=== PATIENT | male | born 1980 | race Caucasian/White ===

== ENCOUNTER 2023-10-25 06:16 | Emergency (ER) | payer MEDICAID, SELFPAY ==
--- NOTE | ~2023-10-25 | CT_ITS ---
Non-contrast CT scan of the Abdomen and Pelvis Clinical indication: Flank pain Technique: 2.5 mm axial scans were obtained through the abdomen and pelvis without intravenous or or al contrast. Dose reduction technique was used on this scan by utilizing automated exposure control a nd iterative reconstruction technique. The dose-length product (DLP) was 1050.47 mGy-cm. Findings: Images through the lung bases reveal no abnormalities. 3-4 mm proximal right ureteral stent present with mild right hydronephrosis. No left renal or left ur eteral stone. No left hydronephrosis. The liver, spleen, pancreas, and adrenals appear normal. Calcified gallstones are present. There is n o aortic aneurysm. There is no evidence of bowel obstruction. Images through the pelvis were performed. There is no evidence of ascites or lymphadenopathy. Urinary bladder unremarkable. No pelvic mass seen. Impression: 3-4 mm proximal right ureteral stone, with mild right hydronephrosis. Reviewed, dictated and finalized at [facility]. Impression: 3-4 mm proximal right ureteral stone, with mild right hydronephrosis.
[2023-10-25 06:27] VITALS: BP 141/81; PULSE 83; RESP 18; TEMP 36.5; O2SAT 100
[2023-10-25 06:40] LABS: Basophils Absolute Auto 0.1 K/mm3 (0.0-0.1); Basophils Percent Auto 0.8 % (0.2-1.2); Eosinophils Absolute Auto 0.5 K/mm3 (0-0.3); Eosinophils Percent Auto 5.3 % (0-4.4); Hematocrit 48.4 % (42.0-52.0); Immature Granulocyte Absolute 0.02 K/mm3 (0.00-0.031); Immature Granulocyte Percent A 0.2 % (0-0.5); Lymphocytes Absolute Auto 2.56 K/mm3 (0.9-3.2); Lymphocytes Percent Auto 29.6 % (18.3-44.2); Mean Corpuscular HGB Conc 33.1 g/dl (32-36); Mean Corpuscular Hemoglobin 30.5 pg (26-34); Mean Corpuscular Volume 92.2 fl (80-100); Mean Platelet Volume 11.2 fl (7.4-10.4); Monocytes Absolute Auto 0.6 K/mm3 (0.1-0.6); Monocytes Percent Auto 7.4 % (2.6-8.5); Neutrophils Absolute Auto 4.9 K/mm3 (1.3-6.7); Neutrophils Percent Auto 56.7 % (45.5-73.1); Platelet Count Result 262 k/mm3 (150-375); Red Blood Count 5.25 M/mm3 (4.6-6.20); Red Cell Distribution Width 13.9 % (11.5-14.5); White Blood Count 8.7 K/mm3 (4.5-10.0)
[2023-10-25] MEDS: MORPHINE SULFATE (*CRX) 4 MG/ML INJ IV PUSH (06:51)
[2023-10-25] MEDS: SODIUM CHLORIDE 0.9% IV 1,000 ML 999 ML IV CONT (06:51)
[2023-10-25] MEDS: ONDANSETRON INJ 4 MG/2 ML VIAL IV PUSH (06:51)
[2023-10-25 06:54] LABS: Alanine Aminotransferase 50 U/L (6-50); Albumin Level 4.2 g/dL (3.5-5.1); Alkaline Phosphatase 62 U/L (38-126); Anion Gap 6 mmol/L (8-16); Aspartate Amino Transferase 44 U/L (17-59); Bilirubin,Total 0.6 mg/dL (0.2-1.3); Blood Urea Nitrogen 14 mg/dL (9-20); Calcium 9.1 mg/dL (8.4-10.2); Carbon Dioxide 29 mmol/L (22-30); Chloride 104 mmol/L (98-107); Estimated CRCL calculation 91 ml/min; Estimated Glomerular Filt Rate > 60; Glucose 171 mg/dL (65-110); Lipase 117 U/L (23-300); Sodium 139 mmol/L (137-145)
[2023-10-25 07:00] LABS: Potassium 3.7 mmol/L (3.4-5.0)
--- NOTE | 2023-10-25 07:56 | ED.ABDPAIN ---
HPI - Abdominal Pain General Chief Complaint: Abdominal Pain Stated Complaint: right flank pain Time Seen by Provider: 10/25/23 07:02 History of Present Illness HPI narrative: 43-year-old male presenting to the emergency department for evaluation of right flank pain. Patient states he had some sharp pain that will come up during the night and after he urinated the pain significantly worsened. Patient denies any prior history of kidney stones. Related Data Allergies Allergy/AdvReac Type Severity Reaction Status Date / Time acetaminophen Allergy Hives Verified 10/25/23 06:18 [From Tylenol-Codeine #3] codeine Allergy Hives Verified 10/25/23 06:18 [From Tylenol-Codeine #3] fluoxetine [From Prozac] Allergy Unknown Verified 10/25/23 06:18 Review of Systems Review of Systems: All systems reviewed & are unremarkable except as noted in HPI and below Exam Narrative: APPEARANCE: Well appearing, no pain, no distress, well-nourished. HEAD: normocephalic, atraumatic. EYES: PERRLA/EOMI, conjunctivae clear. NOSE: Normal no drainage EARS:TMS clear with good light reflex. THROAT: Pharynx clear, no exudate. NECK: Supple. No adenopathy, no masses. RESPIRATORY: Airway patent, respirations nonlabored. Clear to auscultation bilaterally, no rales, rhonchi, wheezing. CARDIOVASCULAR: Regular rate and rhythm without murmurs rubs or gallops. ABDOMINAL: Right CVA tenderness to palpation MUSCULOSKELETAL: Moves all extremities. Strength/ROM intact, No edema, No calf tenderness. NEURO: Alert. Cranial nerves II through XII intact. Good gait. Good coordination SKIN: Warm, dry. Normal Color Course Course Emergency Course: Patient's pain was improved and patient was discharged to home. Patient did not make a urine sample. Vital Signs Vital signs: Vital Signs Temperature 97.7 F 10/25/23 06:27 Pulse Rate 83 10/25/23 06:27 Respiratory Rate 18 10/25/23 06:27 Blood Pressure 141/81 H 10/25/23 06:27 Pulse Oximetry 100 10/25/23 06:27 Oxygen Delivery Room Air 10/25/23 06:27 Temperature 97.7 F 10/25/23 06:27 Pulse Rate 84 10/25/23 09:51 Respiratory Rate 16 10/25/23 09:51 Blood Pressure 142/86 H 10/25/23 09:51 Pulse Oximetry 98 10/25/23 09:51 Oxygen Delivery Room Air 10/25/23 06:27 MDM - Abdominal Pain MDM Narrative Medical decision making narrative: 43-year-old male present to the ED for evaluation for right flank pain. CT scan does show a right-sided renal calculi. Patient is afebrile with no leukocytosis and a stable hemoglobin of 16. Patient has normal kidney function. Differential Diagnosis Differential diagnosis: Likely abdominal pain, acute appendicitis, calculus of kidney and constipation Lab Data Attestation: I reviewed the patient's lab results. 10/25/23 06:35 10/25/23 06:34 Labs: Lab Results 10/25/23 10/25/23 Range/Units 06:34 06:35 WBC 8.7 (4.5-10.0) K/mm3 RBC 5.25 (4.6-6.20) M/mm3 Hgb 16.0 (14.0-18.0) g/dL Hct 48.4 (42.0-52.0) % MCV 92.2 (80-100) fl MCH 30.5 (26-34) pg MCHC 33.1 (32-36) g/dl RDW 13.9 (11.5-14.5) % Plt Count 262 (150-375) k/mm3 MPV 11.2 H (7.4-10.4) fl Immature Gran % (Auto) 0.2 (0-0.5) % Neut % (Auto) 56.7 (45.5-73.1) % Lymph % (Auto) 29.6 (18.3-44.2) % [place] % (Auto) 7.4 (2.6-8.5) % Eos % (Auto) 5.3 H (0-4.4) % Baso % (Auto) 0.8 (0.2-1.2) % Lymph # (Auto) 2.56 (0.9-3.2) K/mm3 [place] # (Auto) 0.6 (0.1-0.6) K/mm3 Eos # (Auto) 0.5 H (0-0.3) K/mm3 Baso # (Auto) 0.1 (0.0-0.1) K/mm3 Abs Immat Gran (auto) 0.02 (0.00-0.031) K/mm3 Absolute Neuts (auto) 4.9 (1.3-6.7) K/mm3 Absolute Nucleated RBC 0.000 (0.0-0.012) K/mm3 Nucleated RBC % 0.0 (0.0-0.2) % Sodium 139 (137-145) mmol/L Potassium 3.7 (3.4-5.0) mmol/L Chloride 104 (98-107) mmol/L Carbon Dioxide 29 (22-30) mmol/L Anion Gap 6 L (8-16) mmol/L BUN 14 (9-20)
[2023-10-25] MEDS: KETOROLAC 15 MG/ML VIAL (*BKC) IV PUSH (08:05)
[2023-10-25] MEDS: TAMSULOSIN HCL 0.4 MG CAPSULE PO (08:05)
--- NOTE | 2023-10-25 09:12 | PC.NURSE ---
pt has been asked many times for urine. pt unwilling to give urine specimen. that's not going to happen
[2023-10-25 09:51] VITALS: BP 142/86; PULSE 84; RESP 16; O2SAT 98
== END 2023-10-25 09:52 | disposition home or self-care (01) ==
PROVIDERS: Emergency Medicine; Emergency Provider Emergency Medicine
DX: N13.2 Hydronephrosis with renal and ureteral calculous obstruction (principal)
CPT/HCPCS: 36415; 74176; 80053; 83690; 85025; 96361; 96374; 96375; 99284; A9270; J1885; J2270; J2405; J7030

== ENCOUNTER 2023-11-06 13:32 | Emergency (ER) | payer MEDICAID, SELFPAY ==
--- NOTE | ~2023-11-06 | CT_ITS ---
EXAMINATION: CT abdomen pelvis wo con DATE: 11/06/2023 14:42 INDICATION: Right flank pain. Kidney stone. TECHNIQUE: Computed tomography (CT) of the abdomen and pelvis was performed without intravenous contr ast. Automated exposure control and iterative reconstruction technique were employed. The dose-length product was 1410.85 mGy-cm. COMPARISON: CT abdomen and pelvis 10/25/2023 FINDINGS: The visualized portions of the lung bases demonstrate mild atelectasis. No pleural effusion . The heart size is normal. No pericardial effusion. There is diffuse hepatic steatosis. There are ga llstones in the gallbladder, which is contracted. The spleen, pancreas, adrenal glands, and left kidn ey are normal. There is mild right hydronephrosis and hydroureter. There is a 3 mm stone in distal ri ght ureter. There are no dilated loops of bowel. The appendix is not visualized. There are no patholo gically enlarged lymph nodes. There is no free intraperitoneal fluid. There is mild thoracic spondylo sis and moderate lumbar spondylosis. IMPRESSION: 1. 3 mm stone in distal right ureter with mild right hydronephrosis and hydroureter. Reviewed, dictated and finalized at location E. IMPRESSION: 1. 3 mm stone in distal right ureter with mild right hydronephrosis and hydrour eter.
[2023-11-06 13:46] VITALS: BP 147/95; PULSE 89; RESP 18; TEMP 36.6; O2SAT 100
--- NOTE | 2023-11-06 13:50 | ED.ABDPAIN ---
HPI - Abdominal Pain General Chief Complaint: Urogenital-Male Stated Complaint: kidney stone? Time Seen by Provider: 11/06/23 13:38 Source: patient Mode of arrival: ambulatory Limitations: no limitations History of Present Illness HPI narrative: This is a 43-year-old male that presents to the emergency department for right-sided abdominal and flank pain. He was seen here couple of days prior and Diagnosed with a kidney stone. Reports worsening pain today which prompted him to be seen again. He has not taken anything for pain. Denies fevers, vomiting, dysuria, hematuria. Related Data Allergies Allergy/AdvReac Type Severity Reaction Status Date / Time acetaminophen Allergy Hives Verified 11/06/23 13:32 [From Tylenol-Codeine #3] codeine Allergy Hives Verified 11/06/23 13:32 [From Tylenol-Codeine #3] fluoxetine [From Prozac] Allergy Unknown Verified 11/06/23 13:32 Review of Systems Review of Systems: CONSTITUTIONAL: Denies fever GASTROINTESTINAL: Reports abdominal pain. Denies nausea, vomiting GENITOURINARY: Denies dysuria or hematuria. All systems reviewed & are unremarkable except as noted in HPI and below PMFSH Past Medical History Medical History (Updated 11/06/23 @ 16:05 by Sera Enriquez PA-C) No active medical problems Social History Social History (Updated 11/06/23 @ 13:51 by Sera Enriquez PA-C) Substance use: never Exam Narrative: GENERAL: Well-appearing, well-nourished, and in mild acute distress due to pain HEAD: Normocephalic, atraumatic. EYES: EOMI. CHEST: Clear to auscultation. No respiratory distress. No wheezes rales or rhonchi HEART: Regular rate and rhythm. No murmur heard. Normal peripheral pulses. ABDOMEN: Soft, nontender, nondistended, normal active bowel sounds. No CVA tenderness EXTREMITIES: Normal range of motion. No edema. SKIN: Warm, dry, no rash. NEURO: No focal deficits. Alert and oriented x3. PSYCH: Normal mood and affect Course Course Emergency Course: Patient updated on his workup. His pain is much improved. Reports he cannot provide a urine sample at this time. Does not wish to stay for any further evaluation or management Vital Signs Vital signs: Vital Signs Temperature 97.9 F 11/06/23 13:46 Pulse Rate 89 11/06/23 13:46 Respiratory Rate 18 11/06/23 13:46 Blood Pressure 147/95 H 11/06/23 13:46 Pulse Oximetry 100 11/06/23 13:46 Oxygen Delivery Room Air 11/06/23 13:46 Temperature 97.9 F 11/06/23 13:46 Pulse Rate 89 11/06/23 13:46 Respiratory Rate 18 11/06/23 13:46 Blood Pressure 147/95 H 11/06/23 13:46 Pulse Oximetry 100 11/06/23 13:46 Oxygen Delivery Room Air 11/06/23 13:46 MDM - Abdominal Pain MDM Narrative Medical decision making narrative: Patient presents to the emergency department for flank pain radiating into the abdomen. He is afebrile and nontoxic appearing. His vitals are stable. CBC without leukocytosis. Kidney function is normal. CT abdomen and pelvis shows 3 mm distal ureteral stone. Patient updated on his workup. His pain is much improved. Reports he cannot provide a urine sample at this time. Does not wish to stay for any further evaluation or management. He was instructed to have follow-up with Urology. He was given warnings to return to the ER Differential Diagnosis Differential diagnosis: Likely calculus of kidney and other (UTI) Lab Data Attestation: I reviewed the patient's lab results. 11/06/23 14:06 11/06/23 14:06 Labs: Lab Results 11/06/23 Range/Units 14:06 WBC 9.5 (4.5-10.0) K/mm3 RBC 5.26 (4.6-6.20) M/mm3 Hgb 15.8 (14.0-18.0) g/dL Hct 46.7 (42.0-52.0) % MCV 88.8 (80-100) fl MCH 30.0 (26-34) pg MCHC 33.8 (32-36) g/dl RDW 13.9 (11.5-14.5) % Plt Count 281 (150-375) k/mm3 MPV 11.8 H (7.4-10.4) fl Immature Gran % (Auto) 0.2 (0-0.5) % Neut % (Auto) 57.8 (45.5-73.1) % Lymph % (Auto) 2
[2023-11-06] MEDS: SODIUM CHLORIDE 0.9% IV 1,000 ML 999 ML IV CONT (14:03)
[2023-11-06] MEDS: ONDANSETRON INJ 4 MG/2 ML VIAL IV PUSH (14:04)
[2023-11-06] MEDS: MORPHINE SULFATE (*CRX) 4 MG/ML INJ IV PUSH (14:04)
[2023-11-06 14:12] LABS: Basophils Absolute Auto 0.1 K/mm3 (0.0-0.1); Basophils Percent Auto 0.8 % (0.2-1.2); Eosinophils Absolute Auto 0.5 K/mm3 (0-0.3); Eosinophils Percent Auto 5.1 % (0-4.4); Hematocrit 46.7 % (42.0-52.0); Hemoglobin 15.8 g/dL (14.0-18.0); Immature Granulocyte Absolute 0.02 K/mm3 (0.00-0.031); Immature Granulocyte Percent A 0.2 % (0-0.5); Lymphocytes Absolute Auto 2.49 K/mm3 (0.9-3.2); Lymphocytes Percent Auto 26.2 % (18.3-44.2); Mean Corpuscular HGB Conc 33.8 g/dl (32-36); Mean Corpuscular Volume 88.8 fl (80-100); Mean Platelet Volume 11.8 fl (7.4-10.4); Monocytes Absolute Auto 0.9 K/mm3 (0.1-0.6); Monocytes Percent Auto 9.9 % (2.6-8.5); Neutrophils Absolute Auto 5.5 K/mm3 (1.3-6.7); Neutrophils Percent Auto 57.8 % (45.5-73.1); Platelet Count Result 281 k/mm3 (150-375); Red Blood Count 5.26 M/mm3 (4.6-6.20); Red Cell Distribution Width 13.9 % (11.5-14.5); White Blood Count 9.5 K/mm3 (4.5-10.0)
[2023-11-06 14:30] VITALS: BP 138/68; PULSE 86; RESP 16; TEMP 37; O2SAT 100
[2023-11-06 14:41] LABS: Alanine Aminotransferase 49 U/L (6-50); Albumin Level 4.5 g/dL (3.5-5.1); Alkaline Phosphatase 75 U/L (38-126); Anion Gap 9 mmol/L (4-12); Aspartate Amino Transferase 34 U/L (17-59); Bilirubin,Total 0.8 mg/dL (0.2-1.3); Blood Urea Nitrogen 17 mg/dL (9-20); Calcium 10.5 mg/dL (8.4-10.2); Carbon Dioxide 23 mmol/L (22-30); Chloride 104 mmol/L (98-107); Estimated Glomerular Filt Rate > 60; Glucose 87 mg/dL (65-110); Lipase 57 U/L (23-300); Sodium 136 mmol/L (137-145)
[2023-11-06 15:00] VITALS: BP 132/78; PULSE 80; RESP 16; TEMP 36.6; O2SAT 98
[2023-11-06 16:00] VITALS: BP 138/76; PULSE 80; RESP 16; TEMP 36.6; O2SAT 98
== END 2023-11-06 16:24 | disposition home or self-care (01) ==
PROVIDERS: Emergency Provider Physician Assistant
DX: N20.0 Calculus of kidney (principal)
CPT/HCPCS: 36415; 74176; 80053; 83690; 85025; 96361; 96374; 96375; 99284; J2270; J2405; J7030

== ENCOUNTER 2023-11-15 07:23 | Emergency (ER) | payer MEDICAID, SELFPAY ==
--- NOTE | ~2023-11-15 | XR_ITS ---
EXAMINATION: XR chest 2V DATE: 11/15/2023 07:54 INDICATION: Left-sided chest pain TECHNIQUE: PA and lateral views of the chest were obtained. COMPARISON: None FINDINGS: The lungs are clear with no focal airspace opacities, pulmonary edema, pleural effusion or pneumothor ax. The cardiomediastinal silhouette is normal. Old healed right clavicle fracture with plate and scr ew fixation. IMPRESSION: 1. No acute cardiopulmonary disease. Reviewed, dictated and finalized at location B.
[2023-11-15 07:30] VITALS: BP 162/100; PULSE 88; RESP 26; TEMP 36.6; O2SAT 100
--- NOTE | 2023-11-15 07:32 | ECG_ITS ---
Measurements Intervals [place] Rate: 83 P: 56 MN: 162 QRS: 9 QRSD: 113 T: 36 QT: 380 Avg RR 717 QTc: 420 QTcB 448 QTcF 424 Interpretive Statements SINUS RHYTHM MODERATE INTRAVENTRICULAR CONDUCTION DELAY [110+ ms QRS DURATION] BORDERLINE ECG SEE SCANNED COPY FOR SIGNATURE MTDD
--- NOTE | 2023-11-15 07:32 | ECG_ITS ---
Measurements Intervals [place] Rate: 83 P: 56 NV: 162 QRS: 9 QRSD: 113 T: 36 QT: 380 Avg RR 717 QTc: 420 QTcB 448 QTcF 424 SINUS RHYTHM MODERATE INTRAVENTRICULAR CONDUCTION DELAY (110+ ms QRS DURATION) BORDERLINE ECG MTDD
[2023-11-15 08:13] LABS: Basophils Absolute Auto 0.1 K/mm3 (0.0-0.1); Eosinophils Absolute Auto 0.2 K/mm3 (0-0.3); Eosinophils Percent Auto 4.3 % (0-4.4); Hematocrit 44.7 % (42.0-52.0); Hemoglobin 14.9 g/dL (14.0-18.0); Immature Granulocyte Absolute 0.01 K/mm3 (0.00-0.031); Immature Granulocyte Percent A 0.2 % (0-0.5); Lymphocytes Absolute Auto 0.84 K/mm3 (0.9-3.2); Lymphocytes Percent Auto 16.3 % (18.3-44.2); Mean Corpuscular HGB Conc 33.3 g/dl (32-36); Mean Corpuscular Hemoglobin 30.5 pg (26-34); Mean Corpuscular Volume 91.6 fl (80-100); Mean Platelet Volume 11.3 fl (7.4-10.4); Monocytes Absolute Auto 0.5 K/mm3 (0.1-0.6); Monocytes Percent Auto 9.1 % (2.6-8.5); Neutrophils Absolute Auto 3.6 K/mm3 (1.3-6.7); Neutrophils Percent Auto 69.1 % (45.5-73.1); Platelet Count Result 237 k/mm3 (150-375); Red Blood Count 4.88 M/mm3 (4.6-6.20); Red Cell Distribution Width 14.3 % (11.5-14.5); White Blood Count 5.2 K/mm3 (4.5-10.0)
[2023-11-15 08:25] LABS: Alanine Aminotransferase 502 U/L (6-50); Albumin Level 4.5 g/dL (3.5-5.1); Alkaline Phosphatase 141 U/L (38-126); Anion Gap 6 mmol/L (4-12); Aspartate Amino Transferase 537 U/L (17-59); Bilirubin,Total 3.1 mg/dL (0.2-1.3); Blood Urea Nitrogen 11 mg/dL (9-20); Calcium 9.5 mg/dL (8.4-10.2); Carbon Dioxide 29 mmol/L (22-30); Chloride 102 mmol/L (98-107); Estimated CRCL calculation 111 ml/min; Estimated Glomerular Filt Rate > 60; Glucose 126 mg/dL (65-110); Lipase 63 U/L (23-300); Potassium 3.7 mmol/L (3.4-5.0); Sodium 137 mmol/L (137-145)
[2023-11-15] MEDS: KETOROLAC 15 MG/ML VIAL (*BKC) IV PUSH (08:29)
[2023-11-15 08:31] VITALS: O2SAT 100
[2023-11-15 08:33] VITALS: BP 142/93; PULSE 79; RESP 16; TEMP 36.6; O2SAT 100
[2023-11-15 08:35] LABS: INR 1.1; Prothrombin Time 14.9 Seconds (11.1-14.7); Troponin I < 0.012 ng/mL (0.000-0.034)
[2023-11-15 08:42] LABS: Partial Thromboplastin Time 27.2 Seconds (22.3-36.8)
[2023-11-15 08:45] VITALS: PULSE 77
[2023-11-15 09:18] VITALS: BP 125/90; PULSE 78; RESP 26; O2SAT 100
--- NOTE | 2023-11-15 10:25 | ECG_ITS ---
Measurements Intervals [place] Rate: 76 P: 43 MD: 174 QRS: -1 QRSD: 122 T: 21 QT: 393 Avg RR: 786 QTc: 423 QTcB: 443 QTcF: 425 INTERPRETATIVE STATEMENT SINUS RHYTHM WITH SINUS ARRHYTHMIA MODERATE INTRAVENTRICULAR CONDUCTION DELAY [110+ ms QRS DURATION] BORDERLINE ECG SEE SCANNED COPY FOR SIGNATURE MTDD
--- NOTE | 2023-11-15 10:35 | PC.NURSE ---
Pt agitated concerning care in ER. Reluctant to allow student nurse to care for him. Making statements concerning No answers and I know something wrong. When I was in [facility] I had same type episode and was given antibiotics. Reassured pt staff and MD providing complete care, MD continue to evaluate pt. Pt family at bedside.
[2023-11-15 10:56] LABS: Troponin I < 0.012 ng/mL (0.000-0.034)
--- NOTE | 2023-11-15 11:00 | ED.CHESTPAIN ---
HPI - Chest Pain General Chief Complaint: Chest Pain Stated Complaint: Chest Pain Time Seen by Provider: 11/15/23 07:25 Source: patient Mode of arrival: ambulatory Limitations: no limitations History of Present Illness HPI narrative: 43-year-old here with a complaint of sudden onset of chest pain which started at 6:30 a.m. patient states that he was getting out of the couch had a sudden onset of sharp shooting pain on the left side of the chest . he denies any shortness of breath or diaphoresis or nausea or vomiting. No previous history of CAD. MD complaint: chest pain Onset (ago): minute(s) (2) Timing of current episode: constant Onset: during rest Pain location: left chest Pain radiation: none Severity: moderate Quality: aching and sharp Relieving factors: nothing Exacerbating factors: nothing Risk Factors Coronary artery disease risk factors: none Related Data Allergies Allergy/AdvReac Type Severity Reaction Status Date / Time codeine Allergy Hives Verified 11/15/23 07:34 [From Tylenol-Codeine #3] fluoxetine [From Prozac] Allergy Unknown Verified 11/15/23 07:34 Review of Systems Review of Systems: All systems reviewed & are unremarkable except as noted in HPI and below Constitutional: Constitutional: Reports no additional constitutional complaints Eyes: Eyes: Reports no additional eye complaints Cardiovascular: Cardiovascular: Reports as per HPI Respiratory: Respiratory: Reports no additional respiratory complaints Gastrointestinal: Gastrointestinal: Reports no additional gastrointestinal complaints Musculoskeletal: Musculoskeletal: Reports no additional musculoskeletal complaints Integumentary/Breasts: Skin/Breast: Reports system reviewed and no additional complaints, except as docu Neurologic: Reports system reviewed and no additional complaints, except as documented PMFSH Past Medical History Medical History (Updated 11/15/23 @ 11:14 by Levi Beltrán MD) No active medical problems Social History Social History (Updated 11/06/23 @ 13:51 by Sera Enriquez PA-C) Substance use: never Exam Narrative: GENERAL: Well-appearing, well-nourished, and in no acute distress. HEAD: Normocephalic, atraumatic. EYES: PERRLA and EOMI. ENT: Nares clear, no rhinorrhea or epistaxis. Mucous membranes moist. NECK: Supple. CHEST: Clear to auscultation. No respiratory distress. HEART: Regular rate and rhythm. No murmur heard. Normal peripheral pulses. ABDOMEN: Soft, nontender, nondistended, normal active bowel sounds. EXTREMITIES: Normal range of motion. No edema. SKIN: Warm, dry, no rash. NEURO: No focal deficits. Alert and oriented x3. PSYCH: Normal mood and affect. Course Course Emergency Course: Patient was complaining of pain I did give him IV Toradol which helped the pain. His lab work and EKG x2 were unremarkable okay this time there is an states that it has no primary doctor recommended to follow with the on-call physician further workup Vital Signs Vital signs: Vital Signs Temperature 36.6 C 11/15/23 07:30 Pulse Rate 88 11/15/23 07:30 Respiratory Rate 26 H 11/15/23 07:30 Blood Pressure 162/100 H 11/15/23 07:30 Pulse Oximetry 100 11/15/23 07:30 Oxygen Delivery Room Air 11/15/23 07:30 Temperature 36.6 C 11/15/23 08:33 Pulse Rate 78 11/15/23 09:18 Respiratory Rate 26 H 11/15/23 09:18 Blood Pressure 125/90 11/15/23 09:18 Pulse Oximetry 100 11/15/23 09:18 Oxygen Delivery Room Air 11/15/23 08:31 MDM - Chest Pain Differential Diagnosis Differential diagnosis: Likely unstable angina pectoris, atypical chest pain and costochondritis Medical Records Data Attestation: I reviewed the patient's medical records. Lab Data Attestation: I reviewed the patient's lab results. 11/15/23 08:04 11/15/23 08:04 Labs: Lab Results 11/15/23 11/15/23 Range/Units 08:04 10:21 WBC 5.2 (4.5-10.0) K/mm3 RBC 4.88
[2023-11-15 11:25] VITALS: BP 145/91; PULSE 75; RESP 18; O2SAT 97
== END 2023-11-15 11:26 | disposition home or self-care (01) ==
PROVIDERS: Emergency Provider Family Medicine
DX: R07.9 Chest pain, unspecified (principal); I45.9 Conduction disorder, unspecified
CPT/HCPCS: 36415; 71046; 80053; 83690; 84484; 85025; 85610; 85730; 93005; 96374; 99284; J1885

== ENCOUNTER 2024-02-03 19:38 | Emergency (ER) | payer MEDICAID, SELFPAY ==
--- NOTE | ~2024-02-03 | XR_ITS ---
EXAMINATION: XR hand RT min 3V DATE: 02/03/2024 20:29 INDICATION: Right index finger dog bite. TECHNIQUE: 3 views of right hand were obtained. COMPARISON: None. FINDINGS: Bone alignment is normal. There is a comminuted fracture of second distal phalanx with invo lvement of the proximal articular surface. The main distal fracture fragment demonstrates near-anatom ic alignment. There is a laceration of the second digit. 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 IMPRESSION: 1. Comminuted fracture of second distal phalanx. Reviewed, dictated and finalized at location E.
[2024-02-03 20:05] VITALS: BP 135/66; PULSE 105; RESP 14; TEMP 36.7; O2SAT 97
--- NOTE | 2024-02-03 20:11 | ED.ANIMALBIT ---
HPI - Animal Bite General Chief Complaint: Animal Bite Stated Complaint: dog bite Time Seen by Provider: 02/03/24 20:05 History of Present Illness HPI narrative: Patient is a 43-year-old male who presents the emergency department this evening after a dog bite to his right index finger. Patient states that there was a neighborhood dog that was in his backyard and the patient went to trying get the dog to get out of his backyard. Patient was trying to push this dog out of the way when the dog bit him. Patient admits that this was a provoked attack and he states that he did provoke the dog. He denies any excessive salivation of the dog or concern for rabies. Patient does not if the dog is up-to-date with immunizations as he is not his dog. Patient did sustain a 2 cm linear laceration to his index finger which does extend through his nail. Denies any additional injuries or concerns. Tetanus shot is not up-to-date. Related Data Allergies Allergy/AdvReac Type Severity Reaction Status Date / Time codeine Allergy Hives Verified 11/15/23 07:34 [From Tylenol-Codeine #3] fluoxetine [From Prozac] Allergy Unknown Verified 11/15/23 07:34 Review of Systems Review of Systems: All systems are reviewed and are negative unless stated otherwise in the HPI. [facility] Past Medical History Medical History No active medical problems Social History Social History Substance use: never Exam Narrative: General: Alert, awake, afebrile, in moderate distress. HEENT: PERRL, no rhinorrhea, no post nasal drip, oropharynx clear. Cardiovascular: Regular rate and rhythm, no murmurs, rubs or gallops, no peripheral edema. Respiratory: Clear to auscultation bilaterally, no tachypnea, no wheezing, no rhonchi, no rubs, no respiratory distress. Abdomen: Soft, nontender, nondistended, no rebound, no guarding, no peritoneal signs. Musculoskeletal: No joint swelling or deformity, normal muscle tone. Skin: 2 cm linear laceration to the medial aspect of the right index, vertical, does cross the index nail Neurological: Alert and oriented to person, place, and time. Follows all commands. No focal deficits, speech is clear and fluent. Course Vital Signs Vital signs: Vital Signs Temperature 98.1 F 02/03/24 20:05 Pulse Rate 105 H 02/03/24 20:05 Respiratory Rate 14 02/03/24 20:05 Blood Pressure 135/66 02/03/24 20:05 Pulse Oximetry 97 02/03/24 20:05 Oxygen Delivery Room Air 02/03/24 20:05 Temperature 98.1 F 02/03/24 20:05 Pulse Rate 105 H 02/03/24 20:05 Respiratory Rate 14 02/03/24 20:05 Blood Pressure 135/66 02/03/24 20:05 Pulse Oximetry 97 02/03/24 20:05 Oxygen Delivery Room Air 02/03/24 20:05 MDM - Animal Bite MDM Narrative Medical decision making narrative: The patient was evaluated by myself in the emergency department. History is obtained from patient who is an independent historian and physical exam was performed. External medical records were reviewed at this time. Patient was administered a tetanus booster. Patient was agreeable to a digital nerve block. 2 cc of 1% lidocaine without epinephrine was injected at the base of the right index, patient admits to mild relief of pain. At this time, patient is refusing any further care, refusing any sutures for loose approximation, or exploration for nail bed injury. Patient did allow me to irrigate the wound with sterile saline. Patient is requesting for the wound to be dressed and requesting discharge. He was administered his 1st dose of Augmentin in the emergency department. Dressing was applied. Imaging studies obtained included a right hand XRAY which was independently interpreted by me revealing comminuted fracture of second distal phalanx, which is pending final radiology interpretation. Patient was informed of this at bedside.
[2024-02-03] MEDS: TETANUS,DIPHTHERIA,AC PERTUSSIS ADULT (0.5 ML) BOOSTRIX IM (20:25)
[2024-02-03] MEDS: AMOXICILLIN/CLAVULANATE K 875-125 MG TAB 1 TABLET PO (20:44)
== END 2024-02-03 20:59 | disposition home or self-care (01) ==
PROVIDERS: Emergency Provider Emergency Medicine
DX: S61.250A Open bite of right index finger without damage to nail, initial encounter (principal); Z23 Encounter for immunization; W54.0XXA Bitten by dog, initial encounter
CPT/HCPCS: 73130; 90471; 90715; 99283; A9270

== ENCOUNTER 2025-02-02 09:10 | Emergency (ER) | payer OTHER, SELFPAY ==
--- NOTE | ~2025-02-02 | CT_ITS ---
EXAMINATION: CT abdomen pelvis w con DATE: 02/02/2025 11:13 INDICATION: Right upper quadrant abdominal pain. Nephrolithiasis. TECHNIQUE: Computed tomography (CT) of the abdomen and pelvis was performed with 100 mL Omnipaque-350 intravenous contrast. Automated exposure control and iterative reconstruction technique were employe d. The dose-length product was 691.51 mGy-cm. COMPARISON: 11/06/2023 FINDINGS: Mild dependent atelectasis in bilateral lower lobes. There is additional small region of mild consoli dation and tree-in-bud opacities in the anterior basilar left lower lobe which more concerning for pn eumonia. Heart size normal. No pericardial or pleural effusion. Several calcified gallstones within t he partially decompressed gallbladder. Small region of focal hepatic steatosis along the ligamentum t eres. Spleen, pancreas, bilateral adrenal glands and kidneys are normal. No evident urolithiasis or h ydronephrosis. Bowels are unremarkable with no obstruction. Bladder is normal. No free intraperitonea l gas or fluid. No pathologically enlarged abdominal or pelvic lymphadenopathy. Mild lumbar and moder ate lower thoracic spondylosis. IMPRESSION: 1. No acute intra-abdominal/pelvic process. 2. Cholelithiasis. 3. Small region of likely pneumonia in the anterobasilar left lower lobe. Reviewed, dictated and finalized at location A.
[2025-02-02 09:31] VITALS: BP 167/115; PULSE 77; RESP 18; O2SAT 100
--- NOTE | 2025-02-02 09:36 | PC.NURSE ---
Pt refusing gown
[2025-02-02 09:43] VITALS: TEMP 36.4
--- NOTE | 2025-02-02 09:44 | PC.NURSE ---
Pt states unable to give urine sample at this time.
[2025-02-02 10:07] LABS: Basophils Absolute Auto 0.1 K/mm3 (0.0-0.1); Basophils Percent Auto 0.6 % (0.2-1.2); Eosinophils Absolute Auto 0.3 K/mm3 (0-0.3); Eosinophils Percent Auto 2.7 % (0-4.4); Hematocrit 45.7 % (42.0-52.0); Hemoglobin 15.1 g/dL (14.0-18.0); Immature Granulocyte Absolute 0.02 K/mm3 (0.00-0.031); Immature Granulocyte Percent A 0.2 % (0-0.5); Lymphocytes Absolute Auto 1.76 K/mm3 (0.9-3.2); Lymphocytes Percent Auto 17.6 % (18.3-44.2); Mean Corpuscular Hemoglobin 29.4 pg (26-34); Mean Corpuscular Volume 88.9 fl (80-100); Mean Platelet Volume 10.1 fl (7.4-10.4); Monocytes Absolute Auto 0.6 K/mm3 (0.1-0.6); Neutrophils Absolute Auto 7.3 K/mm3 (1.3-6.7); Neutrophils Percent Auto 72.9 % (45.5-73.1); Platelet Count Result 237 k/mm3 (150-375); Red Blood Count 5.14 M/mm3 (4.6-6.20)
--- NOTE | 2025-02-02 10:08 | ED.GENADULT ---
HPI - General Adult General Chief complaint: Abdominal Pain Stated complaint: Possible Kidney Stones Time Seen by Provider: 02/02/25 09:47 History of Present Illness HPI narrative: This is a 44-year-old male presenting ED with a chief complaint right flank pain. Patient states the pain started at 6:00 a.m. this morning. It is a sharp stabbing pain radiates to his lower abdomen. Says this feels similar to kidney stones he has as in the past. No nausea or vomiting. No urinary symptoms. No fevers chest pain or difficulty breathing. No cough. Related Data Allergies Allergy/AdvReac Type Severity Reaction Status Date / Time codeine (From Allergy Hives Verified 02/02/25 09:34 Tylenol-Codeine #3) fluoxetine (From Prozac) Allergy Unknown Verified 02/02/25 09:34 [facility] Past Medical History Medical History No active medical problems Social History Social History Substance use: never Exam Narrative: APPEARANCE: No apparent distress. Patient is laying in bed. He is wearing sunglasses inside. Head: atraumatic. EYES: EOMI, NOSE: Atraumatic NECK: Trachea midline RESPIRATORY: No increased rate of breathing clear to auscultation CARDIOVASCULAR: RRR, no peripheral edema ABDOMINAL: Abdomen is soft nontender with no guarding or rebound MUSCULOSKELETAl: No obvious deformities NEURO: Alert. Moving 4/4 extremities SKIN:: Warm, dry. Normal color PSYCHIATRIC: Normal affect Course Vital Signs Vital signs: Vital Signs Pulse Rate 77 02/02/25 09:31 Respiratory Rate 18 02/02/25 09:31 Blood Pressure 167/115 H 02/02/25 09:31 Pulse Oximetry 100 02/02/25 09:31 Oxygen Delivery Room Air 02/02/25 09:31 Temperature 97.5 F L 02/02/25 09:43 Pulse Rate 98 02/02/25 10:54 Respiratory Rate 20 02/02/25 10:54 Blood Pressure 163/109 H 02/02/25 10:17 Pulse Oximetry 99 02/02/25 10:54 Oxygen Delivery Room Air 02/02/25 09:31 Medical Decision Making [facility] Narrative Medical decision making narrative: -Course: This is a 44-year-old male presenting with right upper quadrant pain. Vital signs are stable, abdominal exam is benign. CT abdomen pelvis showed multiple gallstones with no evidence of kidney stones. CT was read as possible pneumonia the left lower lung although patient does not have fevers productive cough left-sided pain or any shortness of breath. More likely atelectasis. LFTs are within normal limits. Patient's pain completely resolved with pain medication and he is now sleeping in the room. The nurse asked the patient to provide urine to complete his workup and the patient told the nurse to Fuck off I'm trying to sleep. Results were discussed with the patient. Discharged with surgery follow-up. Patient was escorted out by security. Patient given return precautions for acute cholecystitis and pneumonia. -DDX includes but is not limited to: Kidney stones, gallstones, gastroenteritis, appendicitis Vital Signs Vital Signs: Vital Signs Pulse Rate 77 02/02/25 09:31 Respiratory Rate 18 02/02/25 09:31 Blood Pressure 167/115 H 02/02/25 09:31 Pulse Oximetry 100 02/02/25 09:31 Oxygen Delivery Room Air 02/02/25 09:31 Temperature 97.5 F L 02/02/25 09:43 Pulse Rate 98 02/02/25 10:54 Respiratory Rate 20 02/02/25 10:54 Blood Pressure 163/109 H 02/02/25 10:17 Pulse Oximetry 99 02/02/25 10:54 Oxygen Delivery Room Air 02/02/25 09:31 Lab Data 02/02/25 10:01 02/02/25 10:01 Labs: Lab Results 02/02/25 Range/Units 10:01 WBC 10.0 (4.5-10.0) K/mm3 RBC 5.14 (4.6-6.20) M/mm3 Hgb 15.1 (14.0-18.0) g/dL Hct 45.7 (42.0-52.0) % MCV 88.9 (80-100) fl MCH 29.4 (26-34) pg MCHC 33.0 (32-36) g/dl RDW 14.0 (11.5-14.5) % Plt Count 237 (150-375) k/mm3 MPV 10.1 (7.4-10.4) fl Immature Gran % (Auto) 0.2 (0-0.5) % Neut % (Auto) 72.9 (45.5-73.1) % Lymph % (Auto) 17.6 L (18.3-44.2) % [place] % (Auto) 6.0 (2.6-8.5) % Eos % (Auto) 2.7 (0-4.4) % Baso % (Auto) 0.6 (0.2-1.2) % Lymph # (Auto) 1.76 (0.9-3.2) K/mm3 [place] # (Auto) 0.6 (0.1-0.6) K/mm3 Eos # (Auto) 0.3 (0-0.3) K/mm3 Baso # (Auto) 0.1 (0.0-0.1) K/mm3 Abs Immat Gran (auto) 0.02 (0.00-0.031) K/mm3 Absolute Neuts (auto) 7.3 H (1.3-6.7) K/mm3 Absolute Nucleated RBC 0.000 (0.0-0.012) K/mm3 Nucleated RBC % 0.0 (0.0-0.2) % Sodium 138 (137-145) mmol/L Potassium 3.9 (3.4-5.0) mmol/L Chloride 104 (98-107) mmol/L Carbon Dioxide 26 (22-30) mmol/L Anion Gap 8 (4-12) mmol/L BUN 15 (9-20) mg/dL Creatinine 1.00 (0.7-1.3) mg/dL Estim Creat Clear Calc 90 ml/min Estimated GFR > 60 (59 - ) Glucose 112 H (65-110) mg/dL Calcium 9.1 (8.4-10.2) mg/dL Total Bilirubin 0.4 (0.2-1.3) mg/dL AST 27 (17-59) U/L ALT 22 (6-50) U/L Alkaline Phosphatase 70 (38-126) U/L Total Protein 7.5 (6.3-8.2) g/dL Albumin 4.3 (3.5-5.1) g/dL Lipase 38 (23-300) U/L Discharge Plan Discharge Clinical Impression: Biliary colic Patient Disposition: Home Condition: Stable Instructions: Antibiotic Form, Abdominal Pain (ED) Additional Instructions: You were seen in the emergency department right upper quadrant pain. This could be due to biliary colic. Please follow-up with general surgeon listed below. If you develop fevers, right upper quadrant pain, shortness of breath or productive cough please return to emergency department for re-evaluation. Use [id number] Motrin Tylenol for pain. Patient Language: Malay Prescriptions: No Action ondansetron 4 mg tablet,disintegrating 4 mg PO Q8H PRN (Reason: nausea and vomiting) Qty: 14 0RF tamsulosin [Flomax] 0.4 mg capsule 0.4 mg PO DAILY Qty: 10 0RF hydrocodone-acetaminophen 5-325 mg tablet 1 tablet PO Q12H PRN (Reason: pain) Qty: 14 0RF amoxicillin-pot clavulanate 875-125 mg tablet 1 tablet PO Q12H 10 Days Qty: 20 0RF Follow-up/Referrals: UNKNOWN,DOCTOR [Primary Care Provider] - Angelo Joseph MD [Physician] - 1 Week (RUQ pain )
[2025-02-02] MEDS: HYDROmorphone HCL INJ (*CRX) 2 MG/ML VIAL 1 MG IV PUSH (10:15)
[2025-02-02 10:17] VITALS: BP 163/109; PULSE 63; RESP 20; O2SAT 99
--- NOTE | 2025-02-02 10:19 | PC.NURSE ---
Pt refusing to leave vital machine leads or cuff on. Educated that with high bp and pain medicine, we are going to have to check his VS while being treated in ED. Agrees to do spot checks for VS.
[2025-02-02 10:20] LABS: Alanine Aminotransferase 22 U/L (6-50); Albumin Level 4.3 g/dL (3.5-5.1); Alkaline Phosphatase 70 U/L (38-126); Anion Gap 8 mmol/L (4-12); Aspartate Amino Transferase 27 U/L (17-59); Bilirubin,Total 0.4 mg/dL (0.2-1.3); Blood Urea Nitrogen 15 mg/dL (9-20); Calcium 9.1 mg/dL (8.4-10.2); Carbon Dioxide 26 mmol/L (22-30); Chloride 104 mmol/L (98-107); Estimated CRCL calculation 90 ml/min; Estimated Glomerular Filt Rate > 60; Glucose 112 mg/dL (65-110); Lipase 38 U/L (23-300); Potassium 3.9 mmol/L (3.4-5.0); Sodium 138 mmol/L (137-145); Total Protein 7.5 g/dL (6.3-8.2)
[2025-02-02 10:54] VITALS: PULSE 98; RESP 20; O2SAT 99
--- NOTE | 2025-02-02 12:49 | PC.NURSE ---
This RN attempted to get urine sample from pt. Pt woke up and told this RN Fuck off im trying to nap. FRANCESCO Rhodes made aware.
== END 2025-02-02 13:15 | disposition home or self-care (01) ==
PROVIDERS: Emergency Provider Emergency Medicine
DX: K80.20 Calculus of gallbladder without cholecystitis without obstruction (principal); Z87.442 Personal history of urinary calculi; R91.8 Other nonspecific abnormal finding of lung field
CPT/HCPCS: 36415; 74177; 80053; 83690; 85025; 96374; 99284; J1171; Q9967